=== PATIENT | female | born 1980 | race Caucasian/White ===

== ENCOUNTER → 2021-12-30 | Outpatient (CLI) | payer BC ==
--- NOTE | 2021-12-31 14:18 | MM ---
Reason for Exam: Screening (asymptomatic). Last mammogram was performed 6 year(s) and 11 month(s) ago. Patient History: Menarche at age 11. First Full-Term at age 25. Risk Values: Maura 5 year model risk: 0.8%. NCI Lifetime model risk: 10.8%. Prior Study Comparison: 01/12/2015 Bilateral Screening Mammogram, [facility]. Tissue Density: There are scattered fibroglandular densities. Findings: Analyzed By CAD. Asymmetry within the upper left breast only visualized on the MLO view that is equal density with circumscribed margins. There is no suspicious group of microcalcifications. Overall Assessment: Incomplete: need additional imaging evaluation, BI-RAD 0 Management: Diagnostic Mammogram of the left breast. A clinical breast exam by your physician is recommended on an annual basis and results should be correlated with mammographic findings. [facility] will attempt to contact patient to return for supplemental views and ultrasound if indicated. Electronically signed and approved by: Vu Dejesus D.O.
== END | disposition home or self-care (01) ==
LOC: RADMAMWWP 14:32
PROVIDERS: ATTEND Obstetrics & Gynecology
DX: Z12.31 Encounter for screening mammogram for malignant neoplasm of breast (principal)
CPT/HCPCS: 77067

== ENCOUNTER → 2022-01-05 | Outpatient (CLI) | payer BC ==
--- NOTE | 2022-01-05 08:18 | MM ---
Reason for Exam: Additional evaluation requested from abnormal screening. Last screening mammogram was performed less than 1 month ago. Patient History: Menarche at age 11. First Full-Term at age 25. Patient has history of breast feeding. Risk Values: Maura 5 year model risk: 0.8%. NCI Lifetime model risk: 10.8%. Prior Study Comparison: 01/12/2015 Bilateral Screening Mammogram, [facility]. 12/30/2021 Bilateral MG screening mammo w CAD, [facility]. Tissue Density: Left: There are scattered fibroglandular densities. Findings: Analyzed By CAD. Under compression no persistent suspicious distortion is identified. There is a persistent rounded density with partially obscured margins in the upper-outer aspect of the left breast. This measures 0.8 cm located 12 cm from nipple. Additional workup with ultrasound is recommended. Overall Assessment: Incomplete: need additional imaging evaluation, BI-RAD 0 Management: Diagnostic Breast Ultrasound of the left breast. A negative mammogram report should not preclude additional follow up of suspicious palpable abnormalities. Patient should continue monthly self breast exam. A clinical breast exam by your physician is recommended on an annual basis and results should be correlated with mammographic findings. Electronically signed and approved by: Gonzalo Perez D.O. Radiologis
--- NOTE | 2022-01-05 09:04 | USB ---
Patient History: Menarche at age 11. First Full-Term at age 25. Patient has history of breast feeding. Risk Values: Maura 5 year model risk: 0.8%. NCI Lifetime model risk: 10.8%. Prior Study Comparison: 01/12/2015 Bilateral Screening Mammogram, [facility]. 12/30/2021 Bilateral MG screening mammo w CAD, [facility]. Findings: The upper outer quadrant of the left breast, the axilla of the left breast and the retroareolar of the left breast were scanned. There is a 0.9 x 1.0 x 0.4 cm hypoechoic area which may have a septation. The through-transmission or posterior wall enhancement is not evident. This may be a complex cyst or solid lesion appears to correlate with the mammogram. Recommend biopsy. Ultrasound-guided core BX could be attempted or stereotactic core biopsy could be performed. Overall Assessment: Suspicious, BI-RAD 4 Management: Ultrasound Core Biopsy of the left breast. A clinical breast exam by your physician is recommended on an annual basis and results should be correlated with mammographic findings. Electronically signed and approved by: Gonzalo Perez D.O. Radiologis
== END | disposition home or self-care (01) ==
LOC: RADMAMWWP 07:39
PROVIDERS: ATTEND Obstetrics & Gynecology
DX: R92.8 Other abnormal and inconclusive findings on diagnostic imaging of breast (principal)
CPT/HCPCS: 77065

== ENCOUNTER → 2022-01-12 | Day surgery (SDC) | payer BC ==
--- NOTE | 2022-01-18 11:56 | USB ---
Risk Values: Maura 5 year model risk: 0.8%. NCI Lifetime model risk: 10.8%. Findings: Multiple attempts to identify the previous 1 cm oval nodule at the 3:00 position left breast were unsuccessful. Additional real-time scanning from the 1:00 position to the 5:00 position were also unsuccessful. This was discussed with the patient. Given the overall benign, circumscribed isodense to low density characteristics of the nodule on mammogram, decision is made to proceed with a 3 month follow-up left mammogram rather than any further intervention at this time. The patient was agreeable. Management: Diagnostic Mammogram of the left breast in 3 months. 1. Unable to reproduce the 1 cm nodule at the 3:00 position left breast. Extensive scanning was performed. Given the overall benign characteristics of the new mammographic nodule seen on 12/30/2021, three-month follow-up diagnostic left breast mammogram is recommended rather than any further procedure or intervention at this time. 2. Patient should continue monthly self breast exams. Electronically signed and approved by: Obey Marte M.D. Radiologist
== END ==
LOC: RADUSWWP 12:44
PROVIDERS: ATTEND Surgery
DX: R92.8 Other abnormal and inconclusive findings on diagnostic imaging of breast (principal); Z53.9 Procedure and treatment not carried out, unspecified reason

== ENCOUNTER → 2023-05-16 | Outpatient (CLI) | payer BC ==
[2023-05-17 02:11] LABS: Basophils # (A) 0.05 X 10*3/uL (0.00-0.10); Basophils % (A) 0.7 %; Eosinophils # (A) 0.33 X 10*3/uL (0.04-0.35); Eosinophils % (A) 4.9 %; HGB 13.6 g/dL (12.0-15.0); Lymphocytes # (A) 2.61 X 10*3/uL (0.90-5.00); Lymphocytes % (A) 38.7 %; MCHC 33.2 g/dL (32.0-37.0); MCV 90.3 FL (80.0-97.0); Mean Platelet Volume 9.8 FL (9.5-12.2); Monocytes % (A) 7.4 %; NRBC Per 100 WBC 0 X 10*3/uL (0.00-0.01); Neutrophils # (A) 3.23 X 10*3/uL (1.80-7.70); Platelet Count 285 X 10*3/uL (140-440); RBC 4.54 X 10*6/uL (4.10-5.20); RDW 12.4 % (11.5-14.5); WBC 6.74 X 10*3/uL (4.50-10.00)
[2023-05-17 02:30] LABS: BUN/Creat Ratio 20.12 Ratio (12.00-20.00); Blood Urea Nitrogen 16.1 mg/dL (9.0-27.0); Calcium 9.7 mg/dL (8.7-10.3); Carbon Dioxide 24.6 mmol/L (21.6-31.8); Chloride 102 mmol/L (96-109); Glucose 84 mg/dL (70-110); Sodium 139 mmol/L (135-145)
== END | disposition home or self-care (01) ==
LOC: LABPAT 15:41
PROVIDERS: ATTEND Obstetrics & Gynecology
DX: Z01.812 Encounter for preprocedural laboratory examination (principal)
CPT/HCPCS: 80048; 85025; 86850; 86900; 86901

== ENCOUNTER 2023-05-25 05:36 | Day surgery (SDC) | payer BC ==
--- NOTE | 2023-05-24 15:25 | P.HPOB ---
History of Present Illness H&P Date: 05/24/23 Chief Complaint: Dysmenorrhea, post endometrial ablation syndrome, menorrhagia This is a 42 y.o. female, 2, para 2, who presents for total laparoscopic hysterectomy with bilateral salpingectomy with Davinci and diagnostic cystoscopy, possible total abdominal hysterectomy with bilateral salpingooophorectomy due to dysmenorrhea, post endometrial ablation syndrome, and menorrhagia with irregular cycle with resulting chronic blood loss anemia. She would like definitive surgical treatment. Her pelvic ultrasound showed uterus measuring 9.6 x 5.9 x 4.7 cm with endometrium not well-visualized but hematomas within endometrium measuring 1.3 and 1.3 cm. Ovaries appeared normal. She also complains of left lower quadrant pelvic pain at least 3 times a month in between her menses that lasts a few days. OB Hx: . History of 2 vaginal deliveries. [employer] Hx: No history of STDs Social Hx: . Works as a teacher. Review of Systems Constitutional: Reports night sweats, Denies chills, Denies fever Eyes: denies blurred vision, denies pain Ears, nose, mouth and throat: Denies headache, Denies sore throat Cardiovascular: Denies chest pain, Denies shortness of breath Respiratory: Denies cough Gastrointestinal: Denies abdominal pain, Denies diarrhea, Denies nausea, Denies vomiting Genitourinary: Reports abnormal vaginal bleeding, Reports dysmenorrhea, Reports menorrhagia, Reports pelvic pain Menstruation: Reports cycle variable, Reports menses 1-7 days, Reports period heavy Musculoskeletal: Denies myalgias Integumentary: Denies pruritus, Denies rash Neurological: Denies numbness, Denies weakness Psychiatric: Denies anxiety, Denies depression Endocrine: Reports flushing Past Medical History Past Medical History: Asthma History of Any Multi-Drug Resistant Organisms: None Reported Past Surgical History: Tubal Ligation, Uterine Ablation Past Anesthesia/Blood Transfusion Reactions: No Reported Reaction Past Psychological History: No Psychological Hx Reported Smoking Status: Former smoker Past Alcohol Use History: Occasional Past Drug Use History: None Reported - Past Family History Father Family Medical History: Cancer Additional Family Medical History / Comment(s): colon Mother Family Medical History: Cancer Additional Family Medical History / Comment(s): skin Medications and Allergies Home Medications Medication Instructions Recorded Confirmed Type Albuterol Inhaler [Ventolin Hfa 1 - 2 puff INHALATION Q6H PRN 05/19/23 05/19/23 History Inhaler] Ibuprofen [Motrin Ib] 400 mg PO Q6H PRN 05/19/23 05/19/23 History Allergies Allergy/AdvReac Type Severity Reaction Status Date / Time No Known Allergies Allergy Verified 05/25/23 06:38 Exam Osteopathic Statement: *. No significant issues noted on an osteopathic structural exam other than those noted in the History and Physical/Consult. HEENT: within normal limits Heart: regular rate and rhythm Lungs: clear to auscultation bilaterally Abdomen: soft, non-tender Pelvic: uterus retroverted, non-tender with mild left adnexal tenderness, no adnexal masses palpated. Extremities: neg. Hector's Assessment and Plan (1) Menorrhagia with irregular cycle Current Visit: No Status: Acute Code(s): N92.1 - EXCESSIVE AND FREQUENT MENSTRUATION WITH IRREGULAR CYCLE SNOMED Code(s): 541696879 (2) Dysmenorrhea Current Visit: No Status: Acute Code(s): N94.6 - DYSMENORRHEA, UNSPECIFIED SNOMED Code(s): 179694047 (3) Post endometrial ablation syndrome Current Visit: No Status: Acute Code(s): N99.85 - POST ENDOMETRIAL ABLATION SYNDROME SNOMED Code(s): 694035671 (4) Chronic blood loss anemia Current Visit: No Status: Acute Code(s): D50.0 - IRON DEFICIENCY ANEMIA SECONDARY TO BLOOD LOSS (CHRONIC) SNOMED Code(s): 761655575 Plan: Proceed with total laparoscopic hysterectomy with bilateral salpingectomy with Davinci and diagnostic cystoscopy, possible total abdominal hysterectomy with bilateral salpingooophorectomy. I have discussed the risks, benefits, and alternative therapies for the above- mentioned procedure and for both sedation/anesthesia as well as necessary blood products administration, if indicated, as they pertain to this patient. The patient has indicated her understanding and acceptance of the risks and procedures discussed.
[2023-05-25] MEDS ORDERED: SCOPOLAMINE 1 MG/72 HR PATCH TRANSDERM ONE (05:54)
[2023-05-25] MEDS ORDERED: ONDANSETRON 4 MG/2 ML VIAL IVP ONE (05:54)
[2023-05-25] MEDS ORDERED: LIDOCAINE 1% (10MG/ML) FOR IV START INTRADERMA PRN (05:54)
[2023-05-25] MEDS ORDERED: droPERidol 5 MG/2 ML VIAL IVP ONE (05:54)
[2023-05-25] MEDS ORDERED: DEXAMETHASONE SOD PHOSPHATE 4 MG/ML 1 ML VIAL IV ONE (05:54)
[2023-05-25] MEDS: LACTATED RINGERS 1,000 ML IV SCH (06:43)
[2023-05-25] MEDS ORDERED: MIDAZOLAM 2 MG/2 ML VIAL IVP ONE (06:54)
[2023-05-25] MEDS ORDERED: HYDROmorphone 0.5 MG/0.5 ML SYRINGE IVP PRN (07:00)
--- NOTE | 2023-05-25 07:06 | P.ANPRN ---
Procedure Note - Anesthesia - Epidural/Spinal Spinal Time Out Performed: Yes Date of Procedure: 05/25/23 Procedure Start Time: 06:53 Procedure Stop Time: 07:00 Location of Patient: PreOp Indication: Acute Post-Operative Pain, Analgesia, Requested by Surgeon Sedation Type: Sedate with meaningful contact maintained Preparation: Sterile Prep Number of Attempts: 1 Position: Sitting Catheter: None Needle Guage: 25 Injectate: Duramorph 300 diaz+Fentanyl 25mic Blood Aspirated: No Pain Paresthesia on Injection Noted: No Events: Uneventful and Well Tolerated
[2023-05-25] MEDS ORDERED: fentaNYL (PF) 50 MCG/ML 2 ML AMP ONE (07:10)
[2023-05-25] MEDS ORDERED: MORPHINE SULFATE (PF) 0.3 MG/0.3 ML SYR ONE (07:10)
[2023-05-25] MEDS ORDERED: SUCCINYLCHOLINE CHLORIDE 200 MG/10 ML VIAL IV ONE (07:10)
[2023-05-25] MEDS ORDERED: HYDROmorphone (PF) 1 MG/ML ONE (07:10)
[2023-05-25] MEDS ORDERED: GLYCOPYRROLATE 0.2 MG/ML 2 ML VIAL ONE (07:10)
[2023-05-25] MEDS ORDERED: PROPOFOL 10 MG/ML 20 ML VIAL IV ONE (07:10)
[2023-05-25] MEDS ORDERED: ALBUTEROL HFA INHALER INHALATION ONE (07:10)
[2023-05-25] MEDS ORDERED: LIDOCAINE 1% INJ 10MG/ML (20 ML MDV) ONE (07:10)
[2023-05-25] MEDS ORDERED: NEOSTIGMINE 1 MG/ML 10 ML VIAL ONE (07:10)
[2023-05-25] MEDS ORDERED: ROCURONIUM 10 MG/ML (5 ML VIAL) IV ONE (07:10)
[2023-05-25] MEDS ORDERED: KETOROLAC 15 MG/ML 1 ML VIAL ONE (07:10)
[2023-05-25] MEDS ORDERED: ALBUTEROL NEBULIZED 2.5 MG/3 ML INHALATION PRN (07:34)
[2023-05-25] MEDS ORDERED: BUPIVACAINE (PF) 0.25% 30 ML VIAL SQ ONE (07:47)
--- NOTE | 2023-05-25 09:02 | P.OP ---
Date of Procedure: 05/25/23 Preoperative Diagnosis: Menorrhagia with irregular cycle Dysmenorrhea Post-endometrial ablation syndrome Postoperative Diagnosis: Same Procedure(s) Performed: Total laparoscopic Hysterectomy with bilateral salpingectomy with da Leighton Diagnostic cystoscopy Anesthesia: IRLANDA Surgeon: Eliana Godwin Seaming Inspector #1: Jana Stinson Estimated Blood Loss (ml): 75 Pathology: other (Uterus with cervix, bilateral fallopian tubes) Condition: stable Disposition: floor Indications for Procedure: This is a 42 y.o. female, 2, para 2, who presents for total laparoscopic hysterectomy with bilateral salpingectomy with Davinci and diagnostic cystoscopy, possible total abdominal hysterectomy with bilateral salpingooophorectomy due to dysmenorrhea, post endometrial ablation syndrome, and menorrhagia with irregular cycle with resulting chronic blood loss anemia. She would like definitive surgical treatment. Her pelvic ultrasound showed uterus measuring 9.6 x 5.9 x 4.7 cm with endometrium not well-visualized but hematomas within endometrium measuring 1.3 and 1.3 cm. Ovaries appeared normal. She also complains of left lower quadrant pelvic pain at least 3 times a month in between her menses that lasts a few days. Operative Findings: Uterus is slightly retroverted, with normal tubes and ovaries bilaterally. Evidence of previous tubal ligation is noted. Description of Procedure: The patient was taken to the operating room where she is placed in the dorsal lithotomy position on a pink pad. Her arms are tucked at her sides and cushioned. When she is correctly position, anesthesia was given. Tilt test was performed. She is prepped and draped in the normal sterile fashion. Next a weighted speculum was placed in the patient's vagina. A right angle retractor is used to visualize the cervix. The anterior lip of the cervix is grasped with a single-tooth tenaculum. Uterus is sounded to 8 cm. Cervix is gently dilated with Minor dilators. Next the cervix is measured at 4 cm. 0 Vicryl stitches are placed at the 3 and 9:00 positions on the cervix and held. Next the HUMI manipulator is placed within the cervix, the balloon is inflated, and then the 0 Vicryl sutures are brought through the HUMI and then the cervical cup is pressed against the cervix until the click is heard. Next the bladder Hercules catheter is inserted. Gloves are changed and attention is turned to the abdomen. The uterus is anteverted and then marked on the abdomen. An incision is made above the umbilicus approximately 8 cm above the top of the uterus and then a 5 mm disposable bladeless trocar is inserted under direct visualization with low flow. Once inside high flow is turned on and intra-abdominal contents were inspected. Another incision is made on the right side approximately 8 cm lateral to the umbilicus in the midline and a 8 mm da Leighton port is placed under direct visualization. The same procedure is carried out on the left side. Next an radiology assistant port is placed approximately 6 cm superior to the left da Leighton port and lateral to the camera port using a 12 mm trocar under direct visualization. Next the 5 mm camera sleeve is replaced with an 8 mm da Leighton port. Next the da Leighton robot is docked to the patient from her right side. The ports are attached to the arms. Smoke evacuator is also attached. The camera is inserted and then a monopolar scissors is placed through the right port and a vessel sealer was placed through the left port under direct visualization. Energy is attached to both ports. At this time I broke scrub to go to the robot console. The end of the left fallopian tube is grasped by the radiology assistant and the vessel sealer is used to cauterize and cut the mesosalpinx. The fallopian tube is then removed through the radiology assistant port. Next the round ligament on the left is grasped with the vessel sealer and cauterized and cut. The broad ligament was then opened up posteriorly with monopolar cautery. Uterine arteries are then grasped with the vessel sealer, cauterized, and cut. Monopolar scissors were then used to carefully dissect the bladder reflection and the bladder flap is created. Next attention is turned to the right side of the pelvis. The end of the right fallopian tube is grasped and the vessel sealer is used to grasp the right mesosalpinx ligament, cauterize, and then cut. This portion of the right fallopian tube was then removed through the radiology assistant port. The round ligament was also grasped with the vessel sealer, cauterized and then cut. The posterior leaf of the broad ligament is then opened up to the uterosacral area. Uterine arteries are grasped with vessel sealer and then cauterized and cut. Next the uterus is retroverted and the balloon is inflated. Monopolar scissors are used to cut through the vaginal cuff along the HUMI cuff anteriorly. This is carried around to the left side again using monopolar and bipolar energy. The uterus is anteverted and then the posterior cuff is cut along the HUMI cuff using monopolar scissors. The remainder of the right side of the cuff is removed with monopolar and bipolar energy. Once the uterus is freed it is removed through the vagina. Monopolar and bipolar energy are used to cauterize any small bleeders left behind. Next the arms are switched out to the right arm with Leandro suture cut and the left arm with a Jose A grasper. An O-Stratafix suture is then used to suture from the right side of the cuff across to the left side in a running fashion after securing the suture with the small loop on the end. Once the left side of the cuff was reached, or sutures were placed going towards the right side to secure the suture and stop any bleeding. Suture was then cut and removed from the field. Irrigation was carried out. Good hemostasis was noted. Next the instruments are removed from the arms. I regowned and cystoscopy was then performed. Both ureteral orifices are visualized with flow. Cystoscopy was then completed and Hercules catheter was repl aced. Clear urine was noted. All sponge and needle counts are correct. Patient is taken to recovery room in stable condition.
[2023-05-25] MEDS ORDERED: SIMETHICONE 80 MG CHEWABLE PO PRN (09:32)
[2023-05-25] MEDS ORDERED: KETOROLAC 15 MG/ML 1 ML VIAL IVP PRN (09:32)
[2023-05-25] MEDS ORDERED: METOCLOPRAMIDE 5 MG/ML 2 ML VIAL IVP PRN (09:32)
[2023-05-25] MEDS ORDERED: ONDANSETRON 4 MG/2 ML VIAL IVP PRN (09:32)
[2023-05-25] MEDS ORDERED: ACETAMINOPHEN IV (For NPO) 1,000 MG in EMPTY BAG 1 BAG IVPB ONE (09:32)
[2023-05-25] MEDS ORDERED: diphenhydrAMINE 50 MG/ML 1 ML VIAL IVP PRN (09:32)
[2023-05-25] MEDS ORDERED: ZOLPIDEM 5 MG TAB PO PRN (09:32)
[2023-05-25] MEDS: SENNOSIDES-DOCUSATE SODIUM 1 EACH TAB PO SCH (10:43)
[2023-05-25] MEDS: IBUPROFEN 600 MG TAB PO PRN ×2 (16:16→23:19)
[2023-05-26 00:05] VITALS: RESP 18
[2023-05-26] MEDS: SENNOSIDES-DOCUSATE SODIUM 1 EACH TAB PO SCH ×2 (03:08→07:48)
[2023-05-26] MEDS: LACTATED RINGERS 1,000 ML IV SCH (06:58)
[2023-05-26 07:27] LABS: Basophils % (A) 0 %; Eosinophils # (A) 0.1 k/uL (0-0.7); Eosinophils % (A) 1 %; HCT 37.3 % (34.0-46.0); HGB 12.3 gm/dL (11.4-16.0); Lymphocytes # (A) 2.5 k/uL (1.0-4.8); Lymphocytes % (A) 29 %; MCH 30.4 pg (25.0-35.0); MCHC 32.9 g/dL (31.0-37.0); MCV 92.3 fL (80.0-100.0); Mean Platelet Volume 7.9; Monocytes # (A) 0.4 k/uL (0-1.0); Monocytes % (A) 5 %; Neutrophils # (A) 5.4 k/uL (1.3-7.7); Neutrophils % (A) 63 %; Platelet Count 248 k/uL (150-450); RBC 4.04 m/uL (3.80-5.40); RDW 12.6 % (11.5-15.5); WBC 8.6 k/uL (3.8-10.6)
[2023-05-26] MEDS ORDERED: ACETAMINOPHEN TAB 325 MG TAB PO PRN (07:33)
[2023-05-26] MEDS: IBUPROFEN 600 MG TAB PO PRN (07:48)
--- NOTE | 2023-05-26 07:59 | P.DS ---
Providers Date of admission: 05/25/2023 Expected date of discharge: 05/26/23 Attending physician: Eliana Godwin Primary care physician: Escobar Bearden - Discharge Diagnosis(es) (1) Menorrhagia with irregular cycle Current Visit: No Status: Acute (2) Dysmenorrhea Current Visit: No Status: Acute (3) Post endometrial ablation syndrome Current Visit: No Status: Acute (4) Chronic blood loss anemia Current Visit: No Status: Acute Hospital Course: This is a 42-year-old female who underwent a total laparoscopic hysterectomy with bilateral salpingectomy and diagnostic cystoscopy with da Leighton on 05/25/2023. Postoperatively she has done well. She is urinating without difficulty. She is passing flatus but no bowel movement yet. She is tolerating regular diet. Pain has been well controlled with ibuprofen and Tylenol. Bleeding has been minimal. Impression is status post total laparoscopic hysterectomy with bilateral salpingectomy with da Leighton and diagnostic cystoscopy postoperative day #1. Plan is to discharge home today. Routine postoperative instructions are given. She is instructed that she may shower but no tub last for 1 week. No heavy lifting. No intercourse for at least 6 weeks. She is advised follow-up in the office in 1 week for a postoperative check. She will be given a prescription for ibuprofen 600 mg every 6 hours as needed. She is advised to call the office if she has any further questions or concerns prior to her postoperative appointment. Procedures: Total laparoscopic hysterectomy with bilateral salpingectomy with da Leighton and diagnostic cystoscopy on 05/25/2023 Patient Condition at Discharge: Stable Plan - Discharge Summary Discharge Rx Participant: No New Discharge Prescriptions: New Ibuprofen [Motrin] 600 mg PO Q6HR PRN #60 tab PRN Reason: Mild Discomfort No Action Albuterol Inhaler [Ventolin Hfa Inhaler] 1 - 2 puff INHALATION Q6H PRN PRN Reason: Wheezing Ibuprofen [Motrin Ib] 400 mg PO Q6H PRN PRN Reason: Pain Discharge Medication List Albuterol Inhaler [Ventolin Hfa Inhaler] 1 - 2 puff INHALATION Q6H PRN 05/19/23 [History] Ibuprofen [Motrin Ib] 400 mg PO Q6H PRN 05/19/23 [History] Ibuprofen [Motrin] 600 mg PO Q6HR PRN #60 tab 12/15/23 [Rx] Follow up Appointment(s)/Referral(s): Eliana Godwin DO [Doctor of Osteopathic Medicine] - 1 Week Patient Instructions/Handouts: *Surgery [facility] - Scopalamine Patch Instructions Activity/Diet/Wound Care/Special Instructions: Activity as tolerated. Diet as tolerated. May shower, but no tub baths for 1 week. No intercourse for 6 weeks. No heavy lifting. Discharge Disposition: HOME SELF-CARE
[2023-05-26 08:27] VITALS: BP 114/73; PULSE 57; TEMP 97.6
== END 2023-05-26 08:25 | disposition home or self-care (01) ==
LOC: OR 05:36 → 4FBP 09:27 → OR 05-26 08:25
PROVIDERS: ATTEND Obstetrics & Gynecology
DX: D25.1 Intramural leiomyoma of uterus (principal); N99.85 Post endometrial ablation syndrome; G89.18 Other acute postprocedural pain; D50.0 Iron deficiency anemia secondary to blood loss (chronic); J45.909 Unspecified asthma, uncomplicated; F10.90 Alcohol use, unspecified, uncomplicated; Z87.891 Personal history of nicotine dependence; Z80.0 Family history of malignant neoplasm of digestive organs; Z98.51 Tubal ligation status; Z79.899 Other long term (current) drug therapy
CPT/HCPCS: 58571; 64999; 81025; 85025; 88307; J2250; J0330; J1200; J1100; J2710; J0690; J2405; J2001; J2274; J3010; J1170; J0131; J1885; J2704; J0665